=== PATIENT | male | born 1980 | race Caucasian/White ===

== ENCOUNTER 2017-06-14 22:18 | Inpatient (IN) | payer BC, MEDICAID ==
[~2017-06-14] VITALS: Ht 172.7 cm; Wt 97.3 kg
[2017-06-14 23:24] LABS: MEAN CORPUSCULAR HEMOGLOBIN 32.3 pg (27.0-33.0); MEAN CORPUSCULAR HGB CONC 36.2 g/dl (32.0-36.5); MEAN CORPUSCULAR VOLUME 89.2 fl (80.0-96.0); PLATELET COUNT, AUTOMATED 243 10^3/uL (150-450); RED CELL DISTRIBUTION WIDTH 11.8 % (11.5-14.5); WHITE BLOOD COUNT 10.6 10^3/uL (4.0-10.0)
[2017-06-14 23:51] LABS: METHADONE URINE NEGATIVE (NEGATIVE)
[2017-06-14 23:57] LABS: ALBUMIN 3.9 GM/DL (3.2-5.2); ALBUMIN/GLOBULIN RATIO 1.15 (1.00-1.93); ALKALINE PHOSPHATASE 105 U/L (45-117); ALT/SGPT 44 U/L (12-78); ANION GAP 6 MEQ/L (8-16); AST/SGOT 22 U/L (7-37); BILIRUBIN,DIRECT 0.2 MG/DL (0.0-0.2); BILIRUBIN,TOTAL 0.7 MG/DL (0.2-1.0); BLOOD UREA NITROGEN 12 MG/DL (7-18); CALCIUM LEVEL 8.6 MG/DL (8.5-10.1); CARBON DIOXIDE LEVEL 28 MEQ/L (21-32); CHLORIDE LEVEL 106 MEQ/L (98-107); CREATININE FOR GFR 1.19 MG/DL (0.70-1.30); GLOMERULAR FILTRATION RATE > 60.0 (>60); GLUCOSE, FASTING 127 MG/DL (70-105); POTASSIUM SERUM 3.4 MEQ/L (3.5-5.1); SODIUM LEVEL 140 MEQ/L (136-145); TOTAL PROTEIN 7.3 GM/DL (6.4-8.2)
[2017-06-15] MEDS ORDERED: traZODone 50 MG TAB PO PRN (00:15)
[2017-06-15] MEDS ORDERED: MAALOX 30 ML SUSP *UDC PO PRN (00:15)
[2017-06-15] MEDS ORDERED: ACETAMINOPHEN TAB 650MG DOSE (2X325MG) PO PRN (00:15)
[2017-06-15] MEDS ORDERED: MOM 30ML SUSPENSION UDC PO PRN (00:15)
[2017-06-15 00:47] VITALS: BP 143/96
--- NOTE | 2017-06-15 10:05 | HPEPDOC ---
[facility] Medical History & Physical Date of Admission Jun 14, 2017 History and Physical PCP: [facility] ATTENDING: Dr. Jeet Diaz HPI: 36 yoM admitted to [facility] for unspecified depressive disorder, being medically examined today. No acute medical complaints today. Denies any fevers, chills, weakness, fatigue, HUBER, CP, SOB, cough, palpitations, abdominal pain, N/V /D or changes in bowel or bladder habits. PMHx: Anxiety Depression PSHX: Denies SOCHX: Resides in: [facility] Marital Status: Kids: 2 Employment: window installation subcontractor Tobacco use: Denies ETOH: Denies Illicit Drugs: Denies IV Drug Use: Denies Tattoos done unprofessionally: Denies FAMHX: Mother: Alive, well Father: Alive, well Siblings: One brother, one sister Alive, well Children: Alive, well Unexpected deaths due to medical reasons: None. ROS: As noted in HPI, otherwise 11pt ROS of systems reviewed and unremarkable. PE: GEN: 36 yo M, appears stated age. Well-nourished, well developed. No acute distress. Alert and oriented x 3. Does not make eye contact, short 1-2 word answers. Flat affect. HEENT: Normocephalic, atraumatic. Pupils are equal, round, and reactive to light. Extraocular movements are intact. No nystagmus appreciated. Sclera are nonicteric. Conjunctiva without injection. Nose midline. Nasal turbinates without bogginess. EACs both patent BL. TMs both visualized and leroy with good cone of light, no bulging or erythema. No facial asymmetry. Moist mucous membranes. Dentition fair. Pharynx pink and moist, no cobblestoning. Neck supple , trachea midline. No lymphadenopathy or thyromegaly appreciated. CHEST: Regular rate and rhythm, +S1, +S2 LUNGS: Clear to auscultation bilaterally. No wheezes, rales, or rhonchi. Breathing appears symmetric and easy. Patient is speaking in full sentences. No accessory muscle use. ABD: Round, soft, non-tender, non-distended. +Bowel sounds throughout. No rebound or guarding. No costovertebral angle tenderness. EXT: Pulses 2+ bilaterally dorsalis pedis and radial. No lower extremity edema appreciated. SKIN: Spreckels, dry, warm. Capillary refill <2sec. No rashes. NEURO: Alert and oriented x 3. Cranial nerves III-XII are intact. No focal deficits appreciated. EKG: Pending. A&P: 36 yoM admitted to [facility] for unspecified depressive disorder 1. Psych. Plan per Psychiatry. Obtain baseline EKG to assure the safety of psychiatric medications as they can prolong the QT interval. 2. Hypokalemia. Recheck BMP. 3. Mild leukocytosis. Patient is afebrile. Asymptomatic. Recheck CBC. 4. Follow up with PCP on discharge. 5. Staff member Lamin present throughout exam. Vital Signs Vital Signs Date Time Temp Pulse Resp B/P (MAP) Pulse Ox O2 Delivery O2 Flow Rate FiO2 06/15/17 00:47 97.0 94 18 143/96 (112) 98 Room Air Laboratory Data Labs 24H Laboratory Tests 2 06/14/17 23:13: Urine Amphetamines Screen NEGATIVE, Urine Benzodiazepines Screen NEGATIVE, Urine Opiates Screen NEGATIVE, Urine Methadone Screen NEGATIVE, Urine Barbiturates Screen NEGATIVE, Urine Phencyclidine Screen NEGATIVE, Urine Cocaine Metabolite Screen NEGATIVE, Urine Cannabinoids Screen NEGATIVE 06/14/17 23:17: Nucleated Red Blood Cells % (auto) 0.0, Anion Gap 6L, Glomerular Filtration Rate > 60.0, Calcium Level 8.6, Aspartate Amino Transf (AST/SGOT) 22, Alanine Aminotransferase (ALT/SGPT) 44, Alkaline Phosphatase 105, Total Bilirubin 0.7, Direct Bilirubin 0.2, Total Protein 7.3, Albumin 3.9, Albumin/Globulin Ratio 1.15, Thyroid Stimulating Hormone (TSH) 1.550, Salicylates Level < 1.7L, Acetaminophen Level < 2.0L, Ethyl Alcohol Level < 0.003 CBC/BMP Laboratory Tests 06/14/17 23:17 Red Blood Count 5.39, Mean Corpuscular Volume 89.2, Mean Corpuscular Hemoglobin 32.3, Mean Corpuscular Hemoglobin Concent 36.2, Red Cell Distribution Width 11.8 Home Medications No Active Prescriptions or Reported Meds Allergies Coded Allergies: No Known Allergies (Unverified , 06/14/17) Lorraine Pablo Jun 15, 2017 10:05
[2017-06-15] MEDS ORDERED: ZOLO50TA PO (12:04)
[2017-06-15] MEDS ORDERED: INFLUENZA QUADRIVALENT PF VACCINE 0.5ML SYRINGE (90686) IM ONE (14:00)
--- NOTE | 2017-06-15 15:16 | MHHPE ---
DATE OF ADMISSION: 06/15/2017 DATE OF DISCHARGE: 06/15/2017 This is the history and physical and discharge summary for Ihsan Barksdale. LEGAL STATUS AT ADMISSION: 9.39 legal status. CHIEF COMPLAINT: "I am having a lot of stressors." HISTORY OF PRESENT ILLNESS: 36-year-old male without prior psychiatric history, admitted to our unit on a 9.39 legal status. According to the record, the patient was brought to our emergency department by the police for an evaluation. It was reported that family and friends became concerned when the patient did not return home after work. The patient admitted that he has been feeling depressed over marital problems. [place] He had apparently been there for a couple of hours. Admitted to fleeting suicidal ideation. The patient reported that he found out that his spouse was unfaithful on 04/04/2017. He stated that he and his spouse have been working on keeping their marriage; however, admits that this has been emotionally painful. Admits to having good days and bad days. He also stated that his spouse tends not to be completely forthcoming, which has made coping with this situation more difficult. He said that he went straight to a secluded area after work where he stayed for a couple of hours. This is a place that he used to visit years ago. The patient admitted to suicidal ideation, although he denied to have a plan. He apparently made a comment to his spouse stating that he wanted to end it. He was admitted for observation. He mentioned that his spouse lost her job and he had to take a second job to support the family. This has lead to further stress and depression, "I have not had a day off in 3 months." During the interview today, the patient reports feeling better and that he had been thinking about his problems and that it is now clear what he needs to do even though it is very painful to go through it. He said that a message of his daughter was on the phone asking him to come back and that was a clear sign to him that needs to stay there for his children. He would like also to be able to do marital therapy with his and he would like her to be forthcoming and tell "the entire truth." He says that the problem is that "I can forgive, but I can't forget," and he is dealing with this. Asking about depression, he says that he does not feel depressed, but he is having roller coaster mood. He reports a normal appetite, normal self esteem, normal energy, low libido, but this is probably related to the problem that he is having with his . There is no evidence of psychotic features. No auditory or visual hallucinations or delusions. The patient states that he needs to go back to work to take care of his family. 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 States, "I am a workaholic, but also I need to support my children and my family." PAST MEDICAL HISTORY: There are no acute medical problems. The patient denies any allergies. PAST PSYCHIATRIC HISTORY: The patient denies any psychiatric problems. FAMILY HISTORY: The patient denies any psychiatric family history. SUBSTANCE ABUSE HISTORY: The patient denies any current or past problems with drugs or alcohol. SOCIAL HISTORY: The patient reports a completely normal childhood without abuse or neglect. The patient finished high school and then did two years of college, has an associates degree and is a flexographic printing press operator. He works. Says has a great support system, including his parents, brother and friends and would like to also include his , although he is now having these above-mentioned problems. REVIEW OF SYSTEMS: Bipolar/nitin: No evidence of distractibility, grandiosity, flight of ideas or pressured speech. Substance abuse: Negative for CAGE questionnaire. Anxiety disorder: Negative for anxiety, panic, agoraphobia, obsessive compulsive disorder (OCD), washing hands repeatedly, or checking things over and over. Somatization disorder: Screening for pain, conversion, GI or sexual symptoms negative. Eating disorder: Screening for dieting, use of laxatives, eating in binges is negative. Cognitive disorder: Screening for memory, orientation and general information is negative. Psychotic disorder: There is no evidence of delusions, paranoia. No grandiosity or yazidi preoccupation. No hallucinations. No looseness of associations. PHYSICAL EXAMINATION: As per physician's title i instructional assistant. LABS AT ADMISSION: CBC showed white blood cells of 10.6, rest within normal limits. CMP showed a potassium of 3.4, rest within normal limits. TSH within normal limits. Urine drug screen (UDS) was negative. Blood alcohol level was negative. MENTAL STATUS EXAMINATION: The patient is dressed in [facility]. Patient is cooperative. Speech is clear and coherent with normal rate and is spontaneous. The patient has good eye contact. Mood is slightly anxious and depressed. Affect is appropriate and congruent with mood. Patient is oriented to time, place, person and situation. Maintains attention and concentration correctly. Instant recall, recent and remote memory are intact. Thought processes coherent, logical and goal directed. Patient does not have auditory or visual hallucinations. Patient does not have paranoid, persecutory, somatic and yazidi delusions. Patient denies suicidal or homicidal ideation. Judgment and insight are fair. HOSPITAL COURSE: After a few hours of observation, the patient continues to deny suicidal ideation. The patient is asking to be released because he needs to go back to work and support his family. He is able to contract for safety. He is denying suicidal ideation. There is no evidence of psychotic symptoms. No auditory or visual hallucinations or delusions. He is willing to followup recommendations and appointments. At this point, the patient does not meet criteria for involuntary hospitalization and is being discharged on 06/15/2017. A meeting with his will be held before discharge. Also, his parents are invited to the meeting. MENTAL STATUS EXAMINATION: Unchanged. ADMISSION AND DISCHARGE DIAGNOSES: [place] I: Adjustment disorder with depressed mood. [place] II: Deferred. [place] III: None acute. CONDITION AT DISCHARGE: Stable. No auditory or visual hallucinations. No delusions. No suicidal or homicidal ideation. Instructions to the patient: The patient is to continue following recommendations, is advised to maintain absolute sobriety from drugs and alcohol. The patient has prescribed sertraline 25 mg by mouth in the morning for 3 days and then is to increase it to 50 mg by mouth at night. Medication management, individual psychotherapy and primary care physician appointments have been set for followup.
--- NOTE | 2017-06-17 00:39 | ECGEPIP ---
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
== END 2017-06-15 17:14 | disposition home or self-care (01) | DRG 754 ==
LOC: M ED 22:18 → M ED INP 06-15 00:05 → M PSY 06-15 00:55
PROVIDERS: ADMIT Psychiatry & Neurology Psychiatry; ATTEND Psychiatry & Neurology Psychiatry
DX: F43.21 Adjustment disorder with depressed mood (principal); E87.6 Hypokalemia; D72.829 Elevated white blood cell count, unspecified